=== PATIENT | female | born 1955 | race Caucasian/White ===

== ENCOUNTER 2017-05-11 19:38 | Inpatient (IN) | payer BC, OTHER ==
[~2017-05-11] VITALS: Ht 172.7 cm; Wt 71.0 kg
[~2017-05-11 19:38] MED LIST: CALC1CAP8 PO; CALC625T23 PO; ESTR1TAB PO; GLUC1CAP18 PO; LEVO150T5 PO; MEDR2.5T30 PO; MULT-658 PO; OMEG1CAP23 PO; TURM500C7 PO; VITA150T PO
[2017-05-11] MEDS ORDERED: SODIUM CHLORIDE 0.9% 1,000 ML IV ONE ×2 (19:56→22:02)
[2017-05-11] MEDS ORDERED: SODIUM CHLORIDE 0.9% 1,000ML IVBOLUS ONE (20:00)
[2017-05-11] MEDS ORDERED: ONDANSETRON 2MG/ML, 2ML IVPush ONE (20:00)
[2017-05-11] MEDS ORDERED: HYDROmorphone 1 MG/ML, 1ML ONE ×2 (20:04→21:19)
[2017-05-11] MEDS ORDERED: ONDANSETRON 2MG/ML, 2ML ONE (20:04)
[2017-05-11] MEDS: HYDROmorphone 1 MG/ML, 1ML IVPush PRN ×2 (20:11→21:23)
[2017-05-11] MEDS ORDERED: OMNIPAQUE 350 MG/ML, 100ML BOTTLE ONE (20:22)
[2017-05-11 20:45] LABS: ASPARTATE AMINO TRANSFERASE 10 U/L (15-37); BLOOD UREA NITROGEN 10 mg/dL (7-18)
[2017-05-11] MEDS ORDERED: BUPIVACAINE/PF-EPI 0.5% 1:200K ONE (21:52)
[2017-05-11] MEDS ORDERED: CEFOTETAN PMX 1GM/50ML 50 ML IV ONE (22:00)
[2017-05-11] MEDS ORDERED: CEFOTETAN PMX 1GM/50ML 50 ML ONE (22:16)
[2017-05-11] MEDS ORDERED: MIDAZOLAM 1 MG/ML, 2ML ONE (22:28)
[2017-05-11] MEDS ORDERED: FENTANYL PF 100 MCG/2ML ONE ×2 (22:29→23:49)
[2017-05-11] MEDS ORDERED: LABETALOL 5MG/ML, 20ML IV PRN (22:30)
[2017-05-11] MEDS ORDERED: OXYcodone 5 MG/5 ML ORAL.SOL UDC PO PRN (22:30)
[2017-05-11] MEDS ORDERED: hydrALAzine 20 MG/ML, 1ML IV PRN (22:30)
[2017-05-11] MEDS ORDERED: FENTANYL PF 100 MCG/2ML IV PRN (22:30)
[2017-05-11] MEDS ORDERED: MORPHINE SULFATE 4 MG/ML, 1ML IVPush PRN (22:30)
[2017-05-11] MEDS ORDERED: ONDANSETRON 2MG/ML, 2ML IVPush PRN ×2 (22:30)
[2017-05-11] MEDS ORDERED: ALBUTEROL SULFATE 2.5 MG/3 ML NPPB PRN (22:30)
[2017-05-11] MEDS ORDERED: METOPROLOL 1 MG/ML, 5ML IV PRN (22:30)
[2017-05-11] MEDS ORDERED: MEPERIDINE/PF 25MG/0.5ML IVPush PRN (22:30)
[2017-05-11] MEDS ORDERED: EPHEDRINE 50 MG/ML, 1ML IVPush PRN (22:30)
[2017-05-11] MEDS ORDERED: ACETAMINOPHEN 325 MG TABLET PO PRN (22:30)
[2017-05-11] MEDS ORDERED: HYDROmorphone 1 MG/ML, 1ML IV PRN (22:30)
[2017-05-11] MEDS ORDERED: BUPIVACAINE/PF-EPI 0.5% 1:200K IM ONE (22:58)
[2017-05-11] MEDS ORDERED: METRONIDAZOLE PMX 500MG/100ML 100 ML ONE (23:25)
[2017-05-11] MEDS ORDERED: ACETAMINOPHEN 650 MG/20.3 ML UDC ONE (23:49)
[2017-05-11] MEDS ORDERED: OXYcodone 5 MG/5 ML ORAL.SOL UDC ONE (23:50)
[2017-05-12] MEDS ORDERED: ONDANSETRON 2MG/ML, 2ML IV PRN (01:30)
[2017-05-12] MEDS ORDERED: MORPHINE SULFATE 4 MG/ML, 1ML IV PRN (01:30)
[2017-05-12] MEDS: D5%-0.45NACL+KCL 20MEQ 1,000 ML IV SCH ×3 (01:36→17:30)
[2017-05-12] MEDS: PIPERACILLIN/TAZO/PMX 3.375GM 50 ML IV SCH ×4 (01:36→19:55)
[2017-05-12 02:50] VITALS: BP 100/55
[2017-05-12 06:03] LABS: BLOOD UREA NITROGEN 11 mg/dL (7-18)
[2017-05-12 07:47] VITALS: BP 109/71
[2017-05-12] MEDS: DOCUSATE 100 MG CAPSULE PO SCH ×2 (08:03→19:55)
[2017-05-12] MEDS: OXYcodone/APAP 5/325MG TABLET PO PRN ×3 (11:56→22:30)
[2017-05-12 14:11] VITALS: BP 95/55
[2017-05-12 19:35] VITALS: BP 90/49
[2017-05-12 22:27] VITALS: BP 108/62
[2017-05-12] MEDS ORDERED: DEXAMETHASONE 4 MG/ML, 1ML ONE (22:46)
[2017-05-12] MEDS ORDERED: KETOROLAC 30 MG/1 ML ONE (22:46)
[2017-05-12] MEDS ORDERED: CEFOTETAN 2 GM ONE (22:46)
[2017-05-12] MEDS ORDERED: ROCURONIUM 10 MG/ML ONE (22:46)
[2017-05-12] MEDS ORDERED: METRONIDAZOLE PMX 500MG/100ML ONE (22:46)
[2017-05-12] MEDS ORDERED: PROPOFOL 10 MG/ML, 20ML ONE (22:46)
[2017-05-12] MEDS ORDERED: ONDANSETRON 2MG/ML, 2ML ONE (22:46)
[2017-05-12] MEDS ORDERED: NEOSTIGMINE 1 MG/ML, 10ML ONE (22:46)
[2017-05-12] MEDS ORDERED: GLYCOPYRROLATE 0.2MG/1ML ONE (22:46)
[2017-05-13] MEDS: D5%-0.45NACL+KCL 20MEQ 1,000 ML IV SCH ×4 (01:30→19:17)
[2017-05-13] MEDS: PIPERACILLIN/TAZO/PMX 3.375GM 50 ML IV SCH ×4 (01:34→19:18)
[2017-05-13 01:35] VITALS: BP 101/50
[2017-05-13] MEDS: LEVOTHYROXINE 150 MCG TABLET PO SCH (06:22)
[2017-05-13] MEDS: OXYcodone/APAP 5/325MG TABLET PO PRN ×4 (06:22→19:18)
[2017-05-13] MEDS: DOCUSATE 100 MG CAPSULE PO SCH ×2 (07:41→20:35)
[2017-05-13 08:17] VITALS: BP 92/54
[2017-05-13] MEDS: MAGNESIUM HYDROXIDE 8%, 30ML UDC PO SCH (10:49)
[2017-05-13] MEDS: ENOXAPARIN 40 MG/0.4 ML SQ SCH (10:49)
[2017-05-13 15:15] VITALS: BP 90/47
[2017-05-13 19:29] VITALS: BP 127/72
[2017-05-14 01:39] VITALS: BP 123/70
[2017-05-14] MEDS: PIPERACILLIN/TAZO/PMX 3.375GM 50 ML IV SCH ×2 (02:02→08:00)
[2017-05-14] MEDS: OXYcodone/APAP 5/325MG TABLET PO PRN ×4 (02:02→13:35)
[2017-05-14 02:04] VITALS: BP 123/66
[2017-05-14] MEDS: LEVOTHYROXINE 150 MCG TABLET PO SCH (05:16)
[2017-05-14 06:55] VITALS: BP 131/72
[2017-05-14] MEDS: MAGNESIUM HYDROXIDE 8%, 30ML UDC PO SCH (08:00)
[2017-05-14] MEDS: DOCUSATE 100 MG CAPSULE PO SCH (08:00)
[2017-05-14] MEDS: ENOXAPARIN 40 MG/0.4 ML SQ SCH (09:36)
== END 2017-05-14 13:46 | disposition home or self-care (01) | DRG 340 ==
LOC: ED 21:53 → EDIP 22:02 → 4NOR 05-12 00:41
PROVIDERS: ADMIT Surgery; ATTEND Surgery
PROC: 0DTJ4ZZ Resection of Appendix, Percutaneous Endoscopic Approach (ICD-10-PCS; principal; 2017-05-11 22:15)
DX: K35.3 Acute appendicitis with localized peritonitis (principal); E03.9 Hypothyroidism, unspecified; Z88.2 Allergy status to sulfonamides; Z90.710 Acquired absence of both cervix and uterus; Z88.0 Allergy status to penicillin
CPT/HCPCS: 36415; 74177; 80048; 80053; 81003; 83690; 85025; 88304; 96361; 96374; 96375; 96376; J1100; J1170; J1650; J1885; J2250; J2405; J2543; J2704; J2710; J3010; J3490; Q9967; J3480; J7030; S0074

== ENCOUNTER → 2020-11-11 | Outpatient (CLI) | payer MEDICARE, OTHER ==
[~2020-11-11] MED LIST changes: +DOCU-144 PO; +EUTHYROX PO; +HYDR-3245 PO; +IBUP-1623 PO; +[UNRECOGNIZED DRUG - CODE] PO; +hydrocodone PO
[2020-11-11 12:38] LABS: BASOPHILS % (AUTO) 1 % (0-1); EOSINOPHILS % (AUTO) 3 % (1-7); LYMPHOCYTES % (AUTO) 36 % (22-44); MEAN CORPUSCULAR HEMOGLOBIN 32.2 pg (27.0-34.8); MEAN CORPUSCULAR HGB CONC 34.3 g/dL (32.4-35.8); MEAN PLATELET VOLUME 8.7 fL (7.4-10.4); MONOCYTES % (AUTO) 8 % (2-9); NEUTROPHILS % (AUTO) 52 % (42-75); PLATELET COUNT 306 x10^3/uL (130-400); RED BLOOD COUNT 4.67 x10^6/uL (3.82-5.3); RED CELL DISTRIBUTION WIDTH 12.9 % (9.6-15.2)
[2020-11-11 12:40] LABS: MD NO
[2020-11-11 12:44] LABS: INTERNATIONAL NORMALIZED RATIO 1.03 (0.93-1.1); PROTHROMBIN TIME 10.9 Seconds (9.6-11.5)
[2020-11-11 13:18] LABS: ALANINE AMINOTRANSFERASE 24 U/L (12-78); ALBUMIN 3.8 g/dL (3.4-5.0); ANION GAP 4 mmol/L (5-15); CALCIUM 8.6 mg/dL (8.5-10.1); CHLORIDE 107 mmol/L (98-107); CREATININE 0.78 mg/dL (0.55-1.02)
[2020-11-11 13:20] LABS: ALKALINE PHOSPHATASE 102 U/L (45-117); BILIRUBIN,TOTAL 0.3 mg/dL (0.2-1.0); TOTAL PROTEIN 7.2 g/dL (6.4-8.2)
== END | disposition home or self-care (01) ==
LOC: STAR 11:07
PROVIDERS: ATTEND Orthopaedic Surgery
DX: Z01.810 Encounter for preprocedural cardiovascular examination (principal); Z01.818 Encounter for other preprocedural examination; M16.12 Unilateral primary osteoarthritis, left hip; M25.552 Pain in left hip; I25.2 Old myocardial infarction; I51.7 Cardiomegaly; Z79.01 Long term (current) use of anticoagulants; Z20.822 Contact with and (suspected) exposure to COVID-19
CPT/HCPCS: 80053; 83036; 85025; 85610; 85730; 87081; 87635; 93005

== ENCOUNTER 2020-12-15 07:55 | Day surgery (SDC) | payer MEDICARE, OTHER ==
[~2020-12-15] VITALS: Ht 172.7 cm; Wt 76.0 kg
[~2020-12-15 07:55] MED LIST changes: -HYDR-3245 PO; +HYDR1TAB53 PO
[2020-12-15 08:55] VITALS: BP 170/91
[2020-12-15] MEDS ORDERED: [UNRECOGNIZED DRUG - OTHER] PO SCH (09:00)
[2020-12-15] MEDS ORDERED: ONDANSETRON 2MG/ML, 2ML IV PRN (09:00)
[2020-12-15] MEDS ORDERED: ACETAMINOPHEN 500 MG TABLET PO ONE (09:00)
[2020-12-15] MEDS ORDERED: HYDROcodone/APAP 5/325 TABLET PO PRN (09:00)
[2020-12-15] MEDS ORDERED: DIPHENHYDRAMINE 25 MG CAPSULE PO PRN (09:00)
[2020-12-15] MEDS ORDERED: LEVOTHYROXINE 150 MCG TABLET PO SCH (09:00)
[2020-12-15] MEDS ORDERED: ESTROGEN ESTER PO SCH (09:00)
[2020-12-15] MEDS ORDERED: OXYcodone IR 5MG TABLET PO PRN (09:00)
[2020-12-15] MEDS ORDERED: GABAPENTIN 300 MG CAPSULE PO ONE (09:00)
[2020-12-15] MEDS ORDERED: ZOLPIDEM 5MG TABLET PO PRN (09:00)
[2020-12-15] MEDS ORDERED: NS + 20MEQ KCL 1,000 ML IV SCH (09:00)
[2020-12-15] MEDS ORDERED: CHLORHEXIDINE 15 ML UDC MM ONE (09:00)
[2020-12-15] MEDS ORDERED: ONDANSETRON 4 MG TABLET PO PRN (09:00)
[2020-12-15] MEDS ORDERED: MAGNESIUM HYDROXIDE 8%, 30ML UDC PO PRN (09:00)
[2020-12-15] MEDS ORDERED: CEFAZOLIN PMX 2GM/50ML 50 ML IVPB SCH (09:00)
[2020-12-15] MEDS ORDERED: TESTOSTERONE PO SCH (09:00)
[2020-12-15] MEDS ORDERED: LACTATED RINGERS 1,000 ML IV SCH (09:00)
[2020-12-15] MEDS ORDERED: ACETAMINOPHEN 650 MG/20.3 ML UDC PO PRN (09:00)
[2020-12-15] MEDS ORDERED: SENNA/DOCUSATE TABLET PO PRN (09:00)
[2020-12-15] MEDS ORDERED: BISACODYL 10 MG SUPP PR PRN (09:00)
[2020-12-15] MEDS ORDERED: DOCUSATE 100 MG CAPSULE PO SCH (09:00)
[2020-12-15] MEDS ORDERED: CHLORHEXIDINE 15 ML UDC ONE (09:06)
[2020-12-15] MEDS ORDERED: KETOROLAC 60 MG/2 ML ONE ×3 (09:24→11:30)
[2020-12-15] MEDS ORDERED: EPINEPHRINE 1 MG/ML, 1ML ONE ×2 (09:25→11:30)
[2020-12-15] MEDS ORDERED: ROPIvacaine/PF 0.5%, 30 ML ONE ×2 (09:25→11:30)
[2020-12-15] MEDS ORDERED: SODIUM CHLORIDE 0.9% 50 ML ONE ×2 (09:25→11:30)
[2020-12-15] MEDS ORDERED: ROPIvacaine/PF 0.5%, 20 ML ONE ×2 (09:25→11:30)
[2020-12-15] MEDS ORDERED: VANCOMYCIN 1,000 MG ONE (09:25)
[2020-12-15] MEDS ORDERED: TRANEXAMIC ACID 100 MG/ML, 10ML ONE ×2 (09:25)
[2020-12-15] MEDS ORDERED: MIDAZOLAM 1 MG/ML, 2ML ONE (09:39)
[2020-12-15] MEDS ORDERED: FENTANYL PF 250 MCG/5ML ONE (09:39)
[2020-12-15] MEDS ORDERED: ONDANSETRON 2MG/ML, 2ML ONE ×3 (10:10→13:01)
[2020-12-15] MEDS ORDERED: ROCURONIUM 10 MG/ML,10ML ONE (10:10)
[2020-12-15] MEDS ORDERED: PROPOFOL 10 MG/ML, 20ML ONE ×2 (10:10→10:56)
[2020-12-15] MEDS ORDERED: NEOSTIGMINE 1 MG/ML, 10ML ONE ×2 (10:10→10:56)
[2020-12-15] MEDS ORDERED: CEFAZOLIN 1,000 MG ONE ×2 (10:10→10:56)
[2020-12-15] MEDS ORDERED: DEXAMETHASONE 4 MG/ML, 1ML ONE ×2 (10:10→10:56)
[2020-12-15] MEDS ORDERED: GLYCOPYRROLATE 0.2MG/1ML, 5ML ONE ×2 (10:10→10:56)
[2020-12-15] MEDS ORDERED: ROCURONIUM 10MG/ML,5ML ONE (10:56)
[2020-12-15] MEDS ORDERED: FENTANYL PF 100 MCG/2ML ONE ×2 (10:57→11:29)
[2020-12-15] MEDS ORDERED: OXYcodone 5 MG/5 ML ORAL.SOL UDC ONE (11:29)
[2020-12-15] MEDS ORDERED: PROMETHAZINE 25 MG/ML, 1ML ONE (11:31)
[2020-12-15] MEDS ORDERED: HYDROmorphone 1 MG/ML, 1ML INJ IVPush PRN (12:00)
[2020-12-15] MEDS ORDERED: HALOPERIDOL 5 MG/ML IV PRN (12:00)
[2020-12-15] MEDS ORDERED: ACETAMINOPHEN 325 MG TABLET PO PRN (12:00)
[2020-12-15] MEDS ORDERED: MEPERIDINE/PF 25MG/0.5ML IVPush PRN (12:00)
[2020-12-15] MEDS ORDERED: hydrALAzine 20 MG/ML, 1ML IV PRN (12:00)
[2020-12-15] MEDS ORDERED: PROMETHAZINE 25 MG/ML, 1ML IVPush PRN (12:00)
[2020-12-15] MEDS ORDERED: LABETALOL 5MG/ML, 20ML IV PRN (12:00)
[2020-12-15] MEDS ORDERED: morphine SULFATE 10 MG/ML, 1ML IVPush PRN (12:00)
[2020-12-15] MEDS ORDERED: METHOCARBAMOL 1,000 MG in DEXTROSE 5% 100 ML IV ONE (12:00)
[2020-12-15] MEDS ORDERED: OXYcodone 5 MG/5 ML ORAL.SOL UDC PO PRN (12:00)
[2020-12-15] MEDS: FENTANYL PF 100 MCG/2ML IV PRN ×2 (12:05→12:20)
[2020-12-15] MEDS ORDERED: ASPIRIN 81 MG TABLET EC PO SCH (18:00)
[2020-12-16] MEDS ORDERED: DEXAMETHASONE 4 MG/ML, 1ML IVPush SCH (06:00)
== END 2020-12-15 16:00 | disposition home or self-care (01) ==
LOC: OUT 07:55
PROVIDERS: ATTEND Orthopaedic Surgery
DX: M16.12 Unilateral primary osteoarthritis, left hip (principal); M25.752 Osteophyte, left hip; E03.9 Hypothyroidism, unspecified; Z79.1 Long term (current) use of non-steroidal anti-inflammatories (NSAID); Z79.890 Hormone replacement therapy; Z79.891 Long term (current) use of opiate analgesic; Z79.899 Other long term (current) drug therapy; Z88.2 Allergy status to sulfonamides
CPT/HCPCS: 27130; 72170; 73502; 97110; 97161; 97165; 97535; C1713; C1776; J0171; J0690; J1100; J1885; J2250; J2405; J2550; J2704; J2710; J2795; J2800; J3010; J3370; J7120; 76000